=== PATIENT | female | born 1990 | race African-American/Black ===

== ENCOUNTER 2024-02-26 07:11 | Emergency (ER) | payer MEDICAID ==
[~2024-02-26] VITALS: Ht 165.1 cm; Wt 105.0 kg
[2024-02-26 07:17] VITALS: O2SAT 99
[2024-02-26] MEDS: KETOROLAC 30MG/ML VIAL IV STA (07:30)
[2024-02-26 08:13] LABS: CHLORIDE 111 mEq/L (98-107); POTASSIUM 3.7 mEq/L (3.5-5.1); SODIUM 141 mEq/L (136-145)
[2024-02-26 08:14] LABS: BASOPHILS % 1.1 % (0.0-2.0); CALCIUM 9.5 mg/dL (8.7-10.4); CARBON DIOXIDE 24 mEq/L (21-32); EOSINOPHILS % 0.8 % (0.0-5.0); HEMATOCRIT. 37.1 % (36.0-48.0); HEMOGLOBIN. 12.3 g/dL (12.0-16.0); LYMPHOCYTES % 25.5 % (20.0-50.0); MEAN CORPUSCULAR HEMOGLOBIN 27.3 pg (28.0-32.0); MEAN CORPUSCULAR VOLUME 82.7 fL (81.0-99.0); MEAN PLATELET VOLUME 8.8 fl (7.4-10.4); MONOCYTES % 4.8 % (2.0-8.0); NEUTROPHILS % 67.8 % (40.0-76.0); PLATELET 259 x1000/uL (130-400); RED BLOOD CELL COUNT 4.49 mill/uL (4.2-5.4); RED CELL DISTRIBUTION WIDTH 12.7 % (11.6-14.6); WHITE BLOOD COUNT 5.9 x1000/uL (4.5-11.0)
[2024-02-26 08:19] LABS: CREATININE 0.8 mg/dL (0.6-1.0); GLUCOSE 83 mg/dL (70-105); UREA NITROGEN BLOOD 13 mg/dL (9-23)
[2024-02-26 08:30] LABS: INR 0.9; PROTHROMBIN TIME 10.5 sec (9.6-11.0)
[2024-02-26 08:31] LABS: HCG SCREEN NEGATIVE
[2024-02-26] MEDS: OXYCODONE HCL/ACETAMINOPHEN 5/325MG TABLET PO ONE (10:22)
[2024-02-26] MEDS ORDERED: LEVO750T68 PO (10:58)
[2024-02-26] MEDS ORDERED: TOPUD PO (10:58)
[2024-02-26 11:21] VITALS: BP 127/78; PULSE 95; RESP 13; TEMP 98.6
== END 2024-02-26 11:35 | disposition home or self-care (01) ==
LOC: ER 07:53
DX: T83.022A Displacement of nephrostomy catheter, initial encounter (principal); X58.XXXA Exposure to other specified factors, initial encounter
CPT/HCPCS: 99285; 74176; 96374; 80048; 81025; 84703; 85025; 85610; 36415; J1885

== ENCOUNTER 2025-01-02 09:56 | Emergency (ER) | payer MEDICAID ==
[~2025-01-02] VITALS: Ht 188 cm; Wt 100.0 kg
[~2025-01-02 09:56] MED LIST: LEVO750T68 PO; TOPUD PO
[2025-01-02 09:59] VITALS: O2SAT 98
[2025-01-02] MEDS ORDERED: ONDANSETRON HCL 4MG/2ML INJ IV STA (10:12)
[2025-01-02 10:51] LABS: HEMATOCRIT. 30.9 % (36.0-48.0); HEMOGLOBIN. 10.2 g/dL (12.0-16.0); MEAN CORPUSCULAR HEMOGLOBIN 27.4 pg (28.0-32.0); MEAN CORPUSCULAR HGB CONC 32.9 g/dL (31.0-37.0); MEAN CORPUSCULAR VOLUME 83.2 fL (81.0-99.0); MEAN PLATELET VOLUME 8.3 fl (7.4-10.4); PLATELET 182 x1000/uL (130-400); RED BLOOD CELL COUNT 3.72 mill/uL (4.2-5.4); RED CELL DISTRIBUTION WIDTH 12.1 % (11.6-14.6); WHITE BLOOD COUNT 6.5 x1000/uL (4.5-11.0)
[2025-01-02 10:55] LABS: CHLORIDE 104 mEq/L (98-107); POTASSIUM 3.1 mEq/L (3.5-5.1); SODIUM 135 mEq/L (136-145)
[2025-01-02 10:56] LABS: CARBON DIOXIDE 18 mEq/L (21-32)
[2025-01-02] MEDS: ACETAMINOPHEN 325MG TABLET PO STA (11:00)
[2025-01-02 11:01] LABS: CREATININE 0.6 mg/dL (0.6-1.0); GLUCOSE 88 mg/dL (70-105); UREA NITROGEN BLOOD 6 mg/dL (9-23)
[2025-01-02 11:07] LABS: DIFFERENTIAL COMMENT 1
[2025-01-02] MEDS: ONDANSETRON HCL 4MG TABLET PO ONE (11:07)
[2025-01-02 11:24] LABS: CALCIUM 9.3 mg/dL (8.7-10.4)
[2025-01-02 12:50] LABS: PLATELET ESTIMATE NORMAL
[2025-01-02 14:41] LABS: CLARITY URINE CLEAR (CLEAR); COLOR URINE YELLOW (YELLOW); GLUCOSE URINE NEGATIVE (NEGATIVE); KETONES URINE 4+ (NEGATIVE); LEUKOCYTE ESTERASE URINE 1+ (NEGATIVE); NITRITE URINE NEGATIVE (NEGATIVE); OCCULT BLOOD URINE NEGATIVE (NEGATIVE); PROTEIN URINE 1+ (NEGATIVE); SPECIFIC GRAVITY URINE 1.016 (1.005-1.030)
[2025-01-02 14:55] VITALS: BP 113/65; PULSE 98; RESP 15; TEMP 37.7; O2SAT 100
[2025-01-02 15:06] LABS: MUCUS URINE TRACE /lpf (< = 2+); SQUAMOUS EPITHELIAL CELL URINE 2+ /lpf (RARE/1+)
[2025-01-02 15:07] LABS: BACTERIA URINE 1+
[2025-01-02 15:08] LABS: RBC URINE NONE SEEN /hpf (0-2)
== END 2025-01-02 15:30 | disposition left against medical advice (07) ==
LOC: ER 09:56
DX: O26.893 Other specified pregnancy related conditions, third trimester (principal); R11.2 Nausea with vomiting, unspecified; Z87.440 Personal history of urinary (tract) infections; Z87.442 Personal history of urinary calculi; Z3A.30 30 weeks gestation of pregnancy
CPT/HCPCS: 99283; 80048; 81003; 81025; 85025; 36415; Q0162; J2405